=== PATIENT | female | born 1980 | race Caucasian/White ===

== ENCOUNTER 2018-11-17 20:16 | Emergency (ER) | payer OTHER ==
[~2018-11-17] VITALS: Ht 157.5 cm; Wt 68.0 kg
[2018-11-17] MEDS ORDERED: CLONAZEPAM2 M1 PO (20:25)
[2018-11-17] MEDS ORDERED: SERTRALINE HCL100 MG PO (20:25)
--- NOTE | 2018-11-17 20:30 | NUR ---
ED Nurse Note: patient ambulated to ED with c/o left lower leg injury. Patient reports twisting ankle getting off the shuttle bus 1130. Patient reports hearing popping sound. reports spraining ankle 4 years ago. fall precautions are taken. slight swelling noted on affected extremity. pulse and sensation noted on affected extremity. cap refill is less than 3 on affected extremity.
[2018-11-17] MEDS ORDERED: Ketorolac 60mg Inj IM ONE (20:45)
--- NOTE | 2018-11-17 22:08 | Emergency Room Report ---
History of Present Illness General Chief Complaint: Lower Extremity Injury Source: Patient Present Illness HPI Patient twisted her left ankle at 1130 this morning. She heard a pop. She has severe pain there is unable to ambulate. She drove herself here. She denies any numbness. The pain radiates from her ankle up into her back on the left- hand side. She denies any numbness. Pain is rated greater than 10/10, sharp and aching and worse when dependent. She has been icing the ankle and this is helped but she still has severe pain. In the past she had 3rd degree ankle sprain of the left ankle 4 years ago. This was treated with an ambulatory boot. It apparently healed completely. There is no evidence of fracture at that time. Patient suffers from anxiety. Allergies: Coded Allergies: No Known Allergies (Unverified , 11/17/18) Patient History Past Medical History: see triage record Social History: Denies: smoking Social History Narrative Patient from [place] but traveling to [place] for work with association with [employer]. Last Menstrual Period: 2017 Now: No Reviewed Nursing Documentation: PMH: Agreed; PSxH: Agreed Nursing Documentation-PMH Past Medical History: No History, Except For Review of Systems Constitutional: Denies: fever Musculoskeletal: Reports: see HPI Skin: Reports: see HPI Neurological: Reports: see HPI Hematologic/Lymphatic: Denies: easy bleeding Physical Exam Vital Signs Date Time Temp Pulse Resp B/P (MAP) Pulse Ox O2 Delivery O2 Flow Rate FiO2 11/17/18 20:19 98.1 101 22 122/69 94 Room Air Sp02 EP Interpretation: reviewed, normal General Appearance: well appearing, no apparent distress, GCS 15 Head: normocephalic, atraumatic Eyes: bilateral eye normal inspection, bilateral eye PERRL, bilateral eye other - Tearful ENT: hearing grossly normal, normal voice, moist mucus membranes Neck: full range of motion, supple Respiratory: no respiratory distress, speaking full sentences Cardiovascular #1: regular rate, rhythm Cardiovascular #2: 2+ radial (R), 2+ dorsalis pedis (L) Gastrointestinal: normal inspection Musculoskeletal: no calf tenderness, pelvis stable, swelling - Now lateral malleolus with ligament stability however tenderness to palpation and tenderness with stressing the ankle. There is point tenderness. Fifth metatarsal is nontender. Neurologic: alert, oriented x3, motor strength/tone normal, sensory intact, speech normal Psychiatric: mood/affect normal, anxious Skin: hematoma - Lateral malleolus Medical Decision Making Diagnostic Impression: Primary Impression: Ankle sprain Qualified Codes: S93.412A - Sprain of calcaneofibular ligament of left ankle, initial encounter ER Course Patient presents with ankle pain after twisting. Differential includes sprain versus fracture. X-rays are indicated based on [place] ankle rules. Also analgesia is indicated. The patient drove herself here and therefore Toradol be administered. X-rays with soft tissue swelling but no fracture. Air splint applied and adjusted by me. Position excellent and some improvement. Distal neurovascular intact as checked by me. Crutches provided. Discussed expected treatment course. Fowler given as pain still significant. Patient stable for outpatient observation and treatment. Other X-Ray Diagnostic Results Other X-Ray Diagnostic Results : X-Ray ordered: Left ankle # of Views/Limited Vs Complete: 3 View Indication: Pain Interpretation: no dislocation, no fractures, other - Soft tissue swelling Impression: Other Electronically Signed by: Electronically signed by Yuri Brady MD Last Vital Signs Date Time Temp Pulse Resp B/P (MAP) Pulse Ox O2 Delivery O2 Flow Rate FiO2 11/17/18 22:21 98.0 86 22 122/69 94 Room Air Status: improved Disposition: HOME, SELF-CARE Condition: Improved Scripts Hydrocodone Bit/Acetaminophen 5-325* (NORCO 5-325*) 1 Each Tablet 1 TAB ORAL Q6H PRN for For Pain, #10 TAB 0 Refills Prov: Yuri Brady MD 11/17/18 Ibuprofen* (MOTRIN*) 600 Mg Tablet 600 MG ORAL Q6H PRN for For Pain, #20 TAB Prov: Yuri Brady MD 11/17/18 Referrals: NON PHYSICIAN (PCP) Yuri Brady MD Nov 17, 2018 22:08
[2018-11-17] MEDS ORDERED: IBUPROFEN600 MG ORAL (22:10)
[2018-11-17] MEDS ORDERED: NORCO 5-325 TA1 EACH ORAL (22:10)
[2018-11-17] MEDS ORDERED: Norco 5mg/325mg tab ORAL ONE (22:15)
[2018-11-17 22:21] VITALS: BP 122/69
--- NOTE | 2018-11-17 22:22 | NUR ---
ER DISCHARGE NOTE: Patient is cleared to be discharged per ERMD, pt is aox4, on room air, with stable vital signs. pt was given dc and prescription instructions, pt was able to verbalize understanding, pt id band removed without complications. pt is able to ambulate with steady gait. pt took all belongings.
--- NOTE | 2018-11-18 09:03 | Diagnostic Imaging Report ---
Indication: Trauma status post fall Technique: 3 views of the left ankle Comparison: none Findings: There is slight soft tissue swelling over the lateral malleolus. No acute fractures. No dislocations. The joint spaces are preserved Impression: Slight lateral soft tissue swelling No acute bony trauma
== END 2018-11-17 22:24 | disposition home or self-care (01) ==
LOC: EMR 20:41
DX: S93.412A Sprain of calcaneofibular ligament of left ankle, initial encounter (principal)
CPT/HCPCS: 96372; 99283